=== PATIENT | male | born 1960 | race African-American/Black ===

== ENCOUNTER 2018-08-31 16:23 | Inpatient (IN) ==
[2018-08-31] MEDS ORDERED: ASPIRIN PO ONE (16:49)
[2018-08-31 17:05] LABS: BASO# 0.04 X1000 (0.0-0.2); BASO% 0.4 % (0.0-0.8); EOS# 0.27 X1000 (0.0-0.7); EOS% 2.9 % (0.0-10.0); HEMATOCRIT 38.2 % (42.0-52.0); HEMOGLOBIN 12.7 g/dL (14.0-18.0); IMM GRAN# 0.03 X1000 (0.0-0.04); IMM GRAN% 0.3 % (0.0-0.5); LYMPH# 2.35 X1000 (1.2-3.4); MCHC 33.2 g/dL (33-37); MCV 72.1 FL (81-99); MONO# 0.77 X1000 (0.11-0.59); MONO% 8.2 % (1.7-9.3); MPV 10.3 FL (7.4-10.4); NEUT# 5.95 X1000 (1.4-6.5); NEUT% 63.2 % (42.2-75.2); PLT 290 X1000 (130-400); RDW 15.3 % (11.5-14.5); WBC 9.41 X1000 (4.8-10.8)
[2018-08-31 17:08] LABS: INR 0.96; PROTIME 13.5 Seconds (11.0-16.0)
[2018-08-31 17:09] LABS: PTT 38.5 Seconds (22.3-41.8)
[2018-08-31 17:27] LABS: AGAP 12; ALB/GLOB RATIO 1.1; ALBUMIN 3.8 g/dL (3.5-5.0); ALKALINE PHOSPHATASE 157 U/L (32-122); BUN 16 mg/dL (8-22); CALCIUM 9.2 mg/dL (8.8-10.2); CHLORIDE 102 mmol/L (98-107); CK PROFILE 177 U/L (24-204); COSMO 279; ESTIMATED GFR > 60; GLUCOSE 170 mg/dL (70-104); GOT 13 U/L (10-34); GPT 17 U/L (10-44); POTASSIUM 3.9 mmol/L (3.5-5.1); SODIUM 137 mmol/L (136-145); TCO2 23 mmol/L (25-35); TOTAL BILIRUBIN 0.23 mg/dL (0.20-1.00); TOTAL PROTEIN 7.4 g/dL (6.3-8.3)
--- NOTE | 2018-08-31 17:54 | Diag Imaging Result Doc PS360 ---
CHEST-2 VIEWS - 08/31/2018 INDICATION: SOB COMPARISON: 03/10/2017 FINDINGS: The lungs are normally expanded and clear. Heart size and mediastinal contours are normal. No pneumothorax or pleural effusion. IMPRESSION: Negative exam. Electronically signed by Jayme Jessica 08/31/2018 5:52 PM
[2018-08-31] MEDS ORDERED: NITROGLYCERIN TOP ONE (18:15)
--- NOTE | 2018-08-31 18:31 | PROVIDER DOCUMENTATION ---
This chart was entered by Lorelei Bonner Scribe, acting as scribe for Donnie Natarajan MD. HPI-Chest Pain - General Chief Complaint: Shortness of Breath Stated Complaint: SOB,HIP,NECK,EYE COMPLAINT Time Seen by Provider: 08/31/18 17:49 Source: patient Allergies/Adverse Reactions: Patient Allergies Allergy/AdvReac Type Severity Reaction Status Date / Time No Known Allergies Allergy Verified 06/01/17 08:53 Home Medications: Home Medication List Medication Instructions Recorded Confirmed Last Taken Type ATORVAstatin [Lipitor] 40 mg PO DAILY 01/29/17 03/10/17 Unknown History Glyburide/Metformin HCl 1 tab PO BID 01/29/17 03/10/17 Unknown History [Glyburide-Metformin 5-500 mg] Lisinopril 20 mg PO BID 01/29/17 03/10/17 Unknown History Indomethacin [Indocin] 25 mg PO TID #30 capsule 03/10/17 Unknown Rx Amoxicillin 875 mg PO BID #20 tab 04/01/17 Unknown Rx Gentamicin 0.3% Oph Drops 2 drp LEFT EYE TID #1 bottle 04/01/17 Unknown Rx Cetirizine [Zyrtec] 10 mg PO DAILY #20 tab 06/01/17 Unknown Rx Methylprednisolone [Medrol Dosepak] 4 mg PO DIRECTED #1 pkg 06/01/17 Unknown Rx Naproxen 500 mg PO BID PRN PRN #60 tablet 02/19/18 Unknown Rx Cyclobenzaprine [Flexeril] 10 mg PO TID #20 tab 05/31/18 Unknown Rx Naproxen [Naprosyn] 500 mg PO BID #20 tab 05/31/18 Unknown Rx Gabapentin [Neurontin] 100 mg PO BID PRN #10 cap 08/30/18 Unknown Rx Naproxen [Naprosyn] 250 mg PO BID PRN #20 tab 08/30/18 Unknown Rx - History of Present Illness-CP Nature of Presenting Problem: pt is a 58 yr old male presenting with 2 yr hx of intermittent chest pain, pt reports pain today began this AM accompanied by shortness of breath. pt denies pain radiation, no nausea or diaphoresis. pt reports last cardiac work up was 3 yrs ago. 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 pt reports pain and shortness of breath with moderate exertion. Location: reports: other (left chest) Chest Pain Radiation: reports: no radiation Quality of Pain: reports: burning Severity in ED: mild Onset/Duration: this morning (hx of same x 2 yrs) Timing: intermittent Context/Activities at Onset: reports: moderate activity Modifying Factors: improves with: exercise (moderate exertion) Associated Symptoms: reports: shortness of breath. denies: abdominal pain, back pain, diaphoresis, nausea, vomiting Nitro Today/Relief: no nitro taken today Aspirin Treatment Today: 325 mg x 1, provided by ED Prior Chest Pain/Cardiac Workup: reports: other (last cardiac workup 3 yrs ago) Similar Symptoms Previously?: Yes Recently Seen Here or By Another Healthcare Provider: No Review of Systems - Adult - REVIEW OF SYSTEMS - ADULT Constitutional: denies: fever, fatique Eyes: reports: no symptoms reported Ears, Nose, Mouth & Throat: denies: ear pain, sinus problem, throat pain Cardiovascular: reports: chest pain. denies: palpitations, syncope Respiratory: reports: dyspnea on exertion (moderate exertion), shortness of breath. denies: cough, wheezing Gastrointestinal: denies: abdominal pain, diarrhea, nausea, vomiting Genitourinary: reports: no symptoms reported Musculoskeletal: denies: back pain, joint pain, neck pain Integumentary: reports: no symptoms reported Neurological: denies: dizziness/vertigo, headache/migraines Past History - Adult - PAST MEDICAL HISTORY-ADULT Review of Records: reports: Old Records Reviewed, Nursing Assessment Review, Medications Reviewed, Social history reviewed & non-contributory. Major Childhood Illnesses: reports: denies history Cardiovascular: reports: HTN, hyperlipidemia Respiratory: reports: denies history Gastrointestinal: reports: denies history Obstetrical/Gynecological: reports: denies history Genitourinary: reports: denies history Musculoskeletal: reports: arthritis Neurological: reports: denies history, Seizures/Epilepsy Endocrine/Immune: reports: Diabetes Other Conditions: reports: denies history - PRIOR SURGERIES/PROCEDURES Surgical/Procedure History: reports: none - PRIOR HOSPITALIZATIONS Prior Hospitalizations: reports: for similar symptoms - IMMUNIZATION STATUS Childhood Immunizations: See Nurse Assessment Flu Vaccine: See Nurse Assessment - FAMILY HISTORY Family History: reviewed, not pertinent - SOCIAL HISTORY Smoking: cigarettes Provider spent 3-5 mins advising pt. on dangers of tobacco.: Discussed manners to quit use, and f/u contacts for add'l counseling. Substance Use: alcohol, marijuana Alcohol Use Frequency: 5-6 times a week Physical Exam-General - PHYSICAL EXAM-ADULT Initial Vital Signs Reviewed: Yes - CONSTITUTIONAL General Appearance: appears well, alert, no apparent distress, obese - EYES Eyes: PERRL/EOMI - HEAD, EARS, NOSE, MOUTH & THROAT HENMT: normocephalic/atraumatic, moist mucous membranes, normal ENT inspection - NECK Neck: non-tender, full range of motion, supple, normal inspection - RESPIRATORY Respiratory: chest non-tender, lungs clear, normal breath sounds - CARDIOVASCULAR Cardiovascular: normal peripheral pulses, regular rate, rhythm, no edema, no gallop, no JVD, systolic murmur - GASTROINTESTINAL (ABDOMEN) Abdominal Exam: normal bowel sounds, non tender, soft - LYMPHATIC Lymphatic: no adenopathy - MUSCULOSKELETAL Back Exam: normal inspection, no CVA tenderness, no vertebral tenderness Extremity: normal range of motion, non-tender, normal gait, normal inspection - SKIN Integumentary: normal color, normal turgor, warm/dry - NEUROLOGIC Neurologic: grossly normal, no motor/sensory deficits - PSYCHIATRIC Psych/Mental Status: normal mood/affect - HEART Score HEART Score: History: Moderately Suspicious HEART Score: Age: 45-65 Years HEART Score: Risk Factors for Atherosclerotic Disease: > or = 3 Risk Factors or History of Atherosclerotic Disease HEART Score: Troponin: < or = Normal Limit (4) Progress - PLAN OF CARE/RESULTS Progress/Plan/Lab Results: Vital Signs - 8 hr 08/31/18 16:38 Temperature 98.4 F Pulse Rate 71 Respiratory Rate 18 Blood Pressure 164/80 O2 Sat by Pulse Oximetry 98 Laboratory Results - last 24 hr 08/31/18 08/31/18 08/31/18 16:48 16:48 16:48 WBC 9.41 RBC 5.30 Hgb 12.7 L Hct 38.2 L MCV 72.1 L MCH 24.0 L MCHC 33.2 RDW Std Deviation 15.3 H Plt Count 290 MPV 10.3 Immature Gran % (Auto) 0.3 Neut % (Auto) 63.2 Lymph % (Auto) 25.0 Harris % (Auto) 8.2 Eos % (Auto) 2.9 Baso % (Auto) 0.4 Immature Gran # (Auto) 0.03 Neut # (Auto) 5.95 Lymph # (Auto) 2.35 Harris # (Auto) 0.77 H Eos # (Auto) 0.27 Baso # (Auto) 0.04 PT INR PTT (Actin FS) Sodium 137 Potassium 3.9 Chloride 102 Carbon Dioxide 23 L Anion Gap 12 BUN 16 Creatinine 1.0 Estimated GFR/1.73 m2 > 60 BUN/Creatinine Ratio 16 Glucose 170 H Calculated Osmolality 279 Calcium 9.2 Total Bilirubin 0.23 AST 13 ALT 17 Alkaline Phosphatase 157 H Creatine Kinase 177 Troponin T [id number]-Fnjvypzlsow Pept 168 Total Protein 7.4 Albumin 3.8 Globulin 3.6 Albumin/Globulin Ratio 1.1 08/31/18 08/31/18 16:48 16:48 WBC RBC Hgb Hct MCV MCH MCHC RDW Std Deviation Plt Count MPV Immature Gran % (Auto) Neut % (Auto) Lymph % (Auto) Harris % (Auto) Eos % (Auto) Baso % (Auto) Immature Gran # (Auto) Neut # (Auto) Lymph # (Auto) Harris # (Auto) Eos # (Auto) Baso # (Auto) PT 13.5 INR 0.96 PTT (Actin FS) 38.5 Sodium Potassium Chloride Carbon Dioxide Anion Gap BUN Creatinine Estimated GFR/1.73 m2 BUN/Creatinine Ratio Glucose Calculated Osmolality Calcium Total Bilirubin AST ALT Alkaline Phosphatase Creatine Kinase Troponin T < 0.010 Byr-A-Fxnkcaqnrgr Pept Total Protein Albumin Globulin Albumin/Globulin Ratio Orders Category Date Time Status Cardiac Monitoring DIRECTED Care 08/31/18 16:49 Active Oxygen Therapy- ED Nursing DIRECTED Care 08/31/18 16:49 Active Saline Loc NOW Care 08/31/18 16:49 Active CHEST-2 VIEWS [RAD] Stat Exams 08/31/18 16:49 Completed CBC WITH ELECTRONIC DIFF [HEME] Stat Lab 08/31/18 16:48 Completed CK PROFILE [SP CHEM] Stat Lab 08/31/18 16:48 Completed COMPREHENSIVE METABOLIC PANEL [CHEM] Stat Lab 08/31/18 16:48 Completed PRO B-NATRIURETIC PEPTIDE Stat Lab 08/31/18 16:48 Completed PROTIME WITH INR [COAG] Stat Lab 08/31/18 16:48 Completed PTT [COAG] Stat Lab 08/31/18 16:48 Completed TROPONIN T Stat Lab 08/31/18 16:48 Completed Aspirin Med 08/31/18 16:49 Discontinued 325 mg PO NOW ONE Nitroglycerin Med 08/31/18 18:15 Discontinued 1 inch TOP NOW ONE CP/SOB/Palp >45 yrs of Age Stat Oth 08/31/18 16:49 Ordered EKG [EKG] Stat Ther 08/31/18 16:49 Ordered HTN, HLP, DM, Smoking, JOSUE need cardiac workup. will admit, Dr. Webster agree with the plan. Result Diagrams: 08/31/18 16:48 08/31/18 16:48 - EKG 1 Time of EKG reading by physician:: 16:42 EKG Read and Signed by:: Alo Webster EKG Interpretation (*Must complete 3 of following elements*): Abnormal (non spedific t wave abnormality) Rate: 73 Rhythm: nsr Duncan: normal QRS: LVH (moderate voltage criteria, may be normal variant) NM Interval: normal - XRAY 1 XRAY Study: Chest Impression: Normal ( Signed CHEST-2 VIEWS - 08/31/2018 INDICATION: SOB COMPARISON: 03/10/2017 FINDINGS: The lungs are normally expanded and clear. Heart size and mediastinal contours are normal. No pneumothorax or pleural effusion. IMPRESSION: Negative exam. Electronically signed by Jayme Jessica 08/31/2018 5:52 PM 08/31/18 1752 Interpreting Physician: Jayme Jessica MD Dictated Date/Time: 08/31/18 1749 cc: Alo Webster MD; Aden Aviles MD) Comparison with other Films: no changes (03/10/17) - CONSULTS/PCP/HOSPITALIST Notification #1 *Consult/PCP/Hospitalist*: Dr. Dumont Time Discussed: 18:25 Consult Disposition: Admit (Hx, PE and patient care disucssed, accepted.) Departure - Departure Date of Disposition Decision: 08/31/18 Time of Disposition Decision: 18:26 DIAGNOSIS: Chest pain Qualifiers: Chest pain type: unspecified Qualified Code(s): R07.9 - Chest pain, unspecified Disposition: ADMITTED INPATIENT 09 Certified Medical Emergency: Emergent Condition: Stable Referrals and Follow-Ups: Aden Khoury MD [Primary Care Provider] - - Critical Care Note This patient required my direct & personal management of CC.: No Attestation - Physician/ RON Attestation Patient care was provided by Advanced Practice Provider:: No The physician spent face to face time with patient:: Yes Advanced Practice Provider documentation review:: Supervising physician onsite and consulted in the evaluation and care of this patient. The physician did have a face to face encounter with the patient. This chart was documented by the indicated scribe, (Lorelei Bonner, Bucky) and accurately reflects the services I performed and decisions made by me, Ty kerns,Donnie Burnette MD, as attested by the provider's signature.
[2018-08-31] MEDS ORDERED: NITROGLYCERIN TOP PRN (18:43)
[2018-08-31] MEDS ORDERED: NICODERM PATCH TD ONE (18:54)
--- NOTE | 2018-08-31 19:55 | Diag Imaging Result Doc PS360 ---
CT ANGIOGRM PULMONARY ARTERIES - 08/31/2018 INDICATION: CHEST PAIN TECHNIQUE: Axial CT images were obtained after administering intravenous contrast. Coronal MIP images were generated. COMPARISON: None FINDINGS: There is no pulmonary embolism. Heart and great vessels are normal. No adenopathy. The lungs and airways are clear. Upper abdominal images are unremarkable. There are severe degenerative osteophytes all throughout the thoracic spine. No acute bony lesion. IMPRESSION: No acute disease. This exam was performed using automated exposure control, adjustment of mA or kV according to patient size, and/or use of iterative reconstruction technique Electronically signed by Jayme Jessica 08/31/2018 7:53 PM
--- NOTE | 2018-08-31 20:03 | HISTORY AND PHYSICAL ---
CHIEF COMPLAINT: Left-sided chest pain, which was noticed this morning at about 4:30 a.m. HISTORY OF PRESENT ILLNESS: Mr. Mil Giron is a 58-year-old male and has a history of hypertension, hyperlipidemia, and diabetes mellitus. He developed sudden onset of chest pain at about 4:30 a.m. this morning while he was about to take his to work. The pain is on the left side of his chest. He describes it as stabbing. On a scale of 0 to 10, it is about 8/10 and radiates to his neck region. Has associated shortness of breath with diaphoresis. Presented to the ER. His initial cardiac enzymes have been negative. X-ray of the chest does not show any acute cardiopulmonary process. EKG showed evidence of normal sinus rhythm with normal axis as well as LVH. The patient indicated that he had some possible cardiac catheterization done about 3 years ago, but then he was told he did not have any coronary occlusions. He does not recall having any stenting procedures done. The patient will now be admitted to the floor for further management. PAST MEDICAL HISTORY: 1. Hypertension. 2. Hyperlipidemia. 3. Diabetes mellitus. SOCIAL HISTORY: He smokes cigarettes, about half a pack of cigarettes per day since 2000. Denies alcohol. He uses marijuana. SURGICAL HISTORY: Unremarkable. FAMILY HISTORY: Positive for hypertension as well as diabetes. ALLERGIES: No known drug allergies. MEDICATIONS: Include the followin. Amoxil 875 mg p.o. twice a day. 2. Cetirizine 10 mg p.o. daily. 3. Cyclobenzaprine 10 mg p.o. 3 times a day. 4. Gentamicin eyedrops as directed. 5. Glyburide/metformin 1 p.o. twice a day. 6. Indomethacin 25 mg p.o. 3 times a day. 7. Medrol Dosepak. 8. Naprosyn 500 mg p.o. 9. Atorvastatin 40 mg p.o. daily. 10. Gabapentin 100 mg. 11. Lisinopril 40 mg. REVIEW OF SYSTEMS: Constitutional: No fever. ORDERLY: Has headaches. 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 Cardiovascular: As in History of Present Illness. Respiratory: No cough. Gastrointestinal: No nausea, vomiting, abdominal pain. : No dysuria. Psychiatric: No anxiety. Endocrine: No thyroid disease. Hematology: No bleeding problems. Musculoskeletal: Has joint pains. PHYSICAL EXAMINATION: VITAL SIGNS: Temperature is 98.4 degrees, pulse 71, respiratory rate 18, blood pressure is 164/80, oxygen saturation 98%. HEENT: Atraumatic, normocephalic. He is anicteric. Pupils are poorly reactive to light. Conjunctiva of left eye is somewhat congested. No oral lesions noted. NECK: No lymphadenopathy or thyromegaly. CARDIOVASCULAR: S1, S2. RESPIRATORY: Has evidence of good air entry bilaterally. ABDOMEN: Soft, nontender. No masses felt. EXTREMITIES: No evidence of edema. CENTRAL NERVOUS SYSTEM: No obvious focal deficit noted. LABS: WBC is 9.41, hematocrit is 38.2, with a platelet count of 290,000. Sodium is 137, potassium is 3.9, chloride is 102, bicarb is 23, BUN is 16, creatinine is 1.0, glucose is 170. X- ray chest: No acute cardiopulmonary process. EKG showed normal sinus rhythm with evidence of LVH. ASSESSMENT AND PLAN: This 58-year-old male presented to the hospital because of left-sided chest pain. Cardiac risk factors include diabetes, hypertension, hyperlipidemia, age, as well as tobacco use. 1. Atypical chest pain. Place patient on telemetry. Follow up on serial cardiac enzymes. Maintain patient on aspirin as well as a beta mary alice, and also use nitroglycerin paste 1 inch every 6 hours as needed chest pain. Obtain 2D echo of the heart. Consult with Cardiology. 2. Diabetes mellitus. Maintain patient on sliding scale insulin. Monitor blood sugar levels. Check hemoglobin A1c level. 3. Hypertension. Continue current antihypertensive regimen. 4. Hyperlipidemia. Continue current lipid-lowering agent. 5. Tobacco use history. Recommend nicotine patch. 6. Blind left eye. Aware 7. Deep vein thrombosis prophylaxis with Lovenox. 8. Gastrointestinal prophylaxis with proton pump inhibitor. cc: Danilo Dumont MD
[2018-08-31] MEDS: PRINIVIL PO SCH (23:03)
[2018-08-31] MEDS: NS 1,000 ML IV SCH (23:03)
[2018-08-31] MEDS: LIPITOR PO SCH (23:03)
[2018-08-31] MEDS: HUMULIN R SUBQ SCH (23:03)
[2018-08-31] MEDS: COREG PO SCH (23:04)
[2018-09-01] MEDS: TYLENOL PO PRN ×2 (01:08→20:08)
[2018-09-01] MEDS ORDERED: ALBUTEROL NEB INH PRN (04:11)
[2018-09-01] MEDS: PRILOSEC PO SCH (06:09)
[2018-09-01] MEDS: HUMULIN R SUBQ SCH ×4 (06:09→21:40)
--- NOTE | 2018-09-01 06:56 | EKG Report ---
Test Performed on : 08/31/2018 4:42:00 PM Test Reason : SOB Blood Pressure : / mmHG Vent. Rate : 073 BPM Atrial Rate : 073 BPM P-R Int : 138 ms QRS Dur : 078 ms QT Int : 388 ms P-R-T Axes : 065 034 069 degrees QTc Int : 427 ms Normal sinus rhythm. Moderate voltage criteria for LVH, may be normal variant Nonspecific T wave abnormality Abnormal ECG When compared with ECG of 26-FEB-2018 18:55, No significant change was found Unconfirmed Result
[2018-09-01 07:35] LABS: HEMOGLOBIN A1C 6.2 % (4.8-6.0)
[2018-09-01 07:44] LABS: CHOLESTEROL 112 mg/dL (0-200); HDL 28 mg/dL (35-55); LDL 57 mg/dL; TRIGLYCERIDES 137 mg/dL (39-160); VLDL 27 mg/dL
[2018-09-01] MEDS ORDERED: LEXISCAN ONE (09:06)
--- NOTE | 2018-09-01 10:03 | CARDIOLOGY CONSULTATION ---
DATE: 09/01/2018 REASON FOR CONSULTATION: Cardiology was consulted for chest pain. HISTORY OF PRESENT ILLNESS: Mr. Giron is a 58-year-old Afro-[place]ese gentleman with history of hypertension, diabetes, hyperlipidemia, who comes in with complaints of chest pain. He has been having intermittent episodes of chest pain at times sharp, at times burning in character, off and on for the last couple of years. He has also had problems with the vision on his left eye. 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 From a cardiac standpoint, he came in with sudden onset chest pain with radiation to the left arm he describes as burning in character. Severe pressure-like sensation radiating to the neck as well. Patient presented to the emergency room and was admitted. His electrocardiogram revealed normal sinus rhythm with nonspecific ST-T changes. His cardiac enzymes have been negative. There is no history of palpitations. There is no history of dizziness or syncope. REVIEW OF SYSTEM: General: A 14-point review of systems was done. GI System: There is no history of nausea, vomiting, diarrhea. There is no history of hematemesis or melena. Central nervous system: No focal weakness to suggest a CVA or TIA. System: There is no dysuria or hematuria. PAST MEDICAL HISTORY: 1. Hypertension, diabetes, hyperlipidemia. 2. He says he had a coronary angiogram 3 to 4 years back. Per patient, he does not recall having any stents performed. 3. He smokes cigarettes; smokes about a half a pack of cigarettes since 1999. Denies any alcohol abuse. ALLERGIES: He is not known to be allergic to any medications. HOME MEDICATIONS: Include gentamicin eye drops, glyburide, metformin 1 tablet twice a day, indomethacin 25 mg 3 times a day, Naprosyn, Atorvastatin, gabapentin, lisinopril. PHYSICAL EXAMINATION: Vital Signs: Blood pressure was 160/80. Cardiovascular System: Normal jugular venous pressure. There is no thyromegaly. No carotid bruit. First and second heart sounds were heard. There was soft systolic murmur. Respiratory System: Normal air entry. There are no crepitations or rhonchi. Abdomen: Soft, nontender. There was no guarding or rigidity. Bowel sounds were heard. Central nervous system: Alert and was moving all 4 extremities. Detailed central nervous system examination not performed. Extremities: Examination of extremities revealed no pedal edema. ASSESSMENT AND PLAN: Mr. Mil Giron is a 58-year-old, Afro-M[place]ese gentleman with history of hypertension, diabetes, hyperlipidemia, who comes in with complaints of having recurrent episodes of chest discomfort for the last 1 year. He comes in with burning retrosternal chest discomfort with radiation to the left side of his chest. He has been ruled out for myocardial infarction by cardiac enzymes. RECOMMENDATIONS: 1. The symptoms may be made worse and has GERD-like features as well. He is on indomethacin and takes Naprosyn; however, we will make sure there is no ischemia. We will set him up to undergo a Cardiolite stress test. In addition, we will get an echocardiogram to evaluate for his murmur. 2. Hypertension. Continue with his medications as planned. 3. He has got likely diabetic retinopathy with visual disturbance in the left eye. 4. Hyperlipidemia. Continue with his lipid-lowering agents. 5. Tobacco abuse history. Nicotine patch recommended. Thank you for the consult. We will follow hospital course. cc: Darshan Rothman MD
--- NOTE | 2018-09-01 11:35 | ECHO REPORT ---
ORDER DATE: 08/31/2018 INTERPRETING PHYSICIAN: Dr. Mario REQUESTING PHYSICIAN: Dr. Dumont CLINICAL INDICATIONS: This is a 58-year-old male with chest pain, shortness of breath, hypertension. M-MODE MEASUREMENTS: Right ventricle: cm. Left ventricle end diastole: 5.0 cm. Left ventricle end systole: 3.2 cm. Posterior wall: 1.1 cm. Interventricular septum: 1.2 cm. Left atrium: 3.7 cm. Aortic root: 3.5 cm. SUMMARY OF 2-DIMENSIONAL IMAGIN. Left ventricular function is normal. Ejection fraction is estimated at 65% to 70%. There is mild degree of concentric LVH. The left ventricular chamber appears to be moderately enlarged. 2. Left atrium also appears to be moderately enlarged. 3. Aortic valve looks normal. Color flow mapping indicates mild degree of regurgitation. 4. Mitral valve looks normal. Color flow mapping indicates trivial degree of regurgitation. 5. Pulse wave Doppler of mitral inflow is normal. 6. Tissue Doppler of septal and lateral mitral annulus averages 10 cm. 7. Pulmonary venous flow is normal. 8. There is no diastolic dysfunction. 9. Tricuspid valve shows minimal degree of regurgitation. 10.Inferior vena cava is not dilated. 11.The pulmonary pressure is normal. 12.Pulmonic valve appears to be within normal limits. 13.There is no pericardial effusion, mass or thrombus. Clinical correlation is recommended. cc: MD Danilo Medina MD
[2018-09-01] MEDS: ASPIRIN PO SCH (12:03)
[2018-09-01] MEDS: COREG PO SCH ×2 (12:03→20:08)
[2018-09-01] MEDS: LOVENOX SUBQ SCH (12:03)
[2018-09-01] MEDS: PRINIVIL PO SCH ×2 (12:04→20:08)
--- NOTE | 2018-09-01 12:38 | PROGRESS NOTE ---
DATE: 09/01/2018 SUBJECTIVE: The patient is resting comfortably in bed. Has recently completed cardiac stress test. OBJECTIVE: Vital signs: Temperature 98.2 degrees, pulse 63, respiratory 17, blood pressure 130/60, oxygen saturation 98%. HEENT: Atraumatic, normocephalic. Cardiovascular: S1, S2. Respiratory: Has evidence of good air entry bilaterally. Abdomen: Soft, nontender. No masses felt. Extremities: No evidence of edema. Central nervous system: No obvious focal deficit noted. ASSESSMENT AND PLAN: 1. Atypical chest pain. Follow up on serial cardiac enzymes. Maintain the patient on aspirin as well as beta mary alice. Also use Nitro paste 1 inch q.6 hours p.r.n. for chest pain. Cardiology following. Follow up on results of cardiac stress test. 2. Diabetes mellitus. Continue blood sugar and monitor as well as sliding scale insulin. 3. Hypertension. Continue current antihypertensive regimen. 4. Hyperlipidemia. Continue lipid-lowering agent. 5. Tobacco use history. Nicotine patch recommended. 6. Blind left eye. Aware. 7. Deep vein thrombosis prophylaxis. Lovenox. 8. Gastrointestinal prophylaxis. Proton pump inhibitors. cc: Danilo Dumont MD
[2018-09-01] MEDS: NS 1,000 ML IV SCH (15:33)
[2018-09-01] MEDS: LIPITOR PO SCH (20:08)
[2018-09-01] MEDS: NEURONTIN PO PRN (20:08)
[2018-09-02] MEDS ORDERED: TORADOL IV ONE (03:26)
[2018-09-02] MEDS: NS 1,000 ML IV SCH (04:01)
[2018-09-02] MEDS: PRILOSEC PO SCH (06:31)
[2018-09-02] MEDS: HUMULIN R SUBQ SCH ×4 (06:31→21:32)
[2018-09-02] MEDS: LOVENOX SUBQ SCH (09:16)
[2018-09-02] MEDS: PRINIVIL PO SCH ×2 (09:16→21:30)
[2018-09-02] MEDS: COREG PO SCH ×2 (09:16→21:30)
[2018-09-02] MEDS: ASPIRIN PO SCH (09:16)
[2018-09-02] MEDS: HYGROTON PO SCH (13:13)
--- NOTE | 2018-09-02 13:23 | PROGRESS NOTE ---
DATE: 09/02/2018 SUBJECTIVE: This morning, Mr. Giron refers to be feeling great. He does not have any new complaint. He said he does not have any abdominal pain and no chest pain. Breathing is fine. OBJECTIVE: Current vitals: Blood pressure is 185/76, pulse is 63, respiration is 18, temperature is 98 degrees. The patient was saturating 100% on room air. General exam: Mr. Giron is a 58- year-old gentleman. He was sitting up in a chair, no distress. HEENT: Mucosa is pink and moist. Anicteric. Acyanotic. Neck: Supple. Respiratory System: There is good air entry bilaterally. No crepitations. No rhonchi. Cardiovascular: Regular rate and rhythm. No murmurs, no rubs, no gallops. GI: Abdomen soft, nontender. Bowel sounds present. Extremities: No pedal edema. Distal pulses are present. NET [employer] SUPPORT SPECIALIST: Patient is awake, alert, oriented. There is no focal neurological deficit. LABORATORY DATA: Glucose is 206. Patient A1c is 6.2. CURRENT MEDICATIONS: Have all been reviewed. DIAGNOSTIC DATA: A stress test which was done yesterday demonstrated a partial reversible defect in the basal to mid inferolateral region of the left ventricle suggesting inducible myocardial ischemia in this region. ASSESSMENT: 1. Atypical chest pain on presentation with abnormal stress test. Patient has been seen by Cardiology. I am waiting for the review on the stress test to make a determination if the patient will pursue any further cardiac risk stratification intervention. 2. Diabetes mellitus, controlled. 3. Severe uncontrolled hypertension. Patient's blood pressure continues to be remarkably elevated. We are going to add amlodipine and chlorthalidone as a diuretic to his current medication for better glycemic control. 4. Dyslipidemia. Will continue with the statin. 5. Tobacco abuse. Patient has been counseled. 6. Microcytosis. We will do iron studies to rule out any underlying iron deficiency. PLAN: So, in general Mr. Giron refers to be doing a lot better today. He is currently asymptomatic. Stress test was remarkably abnormal. Unsure the patient had an unstable angina. Will be pending on Cardiology evaluation today to determine if the patient will benefit from a left heart catheterization as an inpatient or an outpatient. cc: Hudson Rojas MD
--- NOTE | 2018-09-02 16:07 | PROGRESS NOTE ---
DATE: 09/02/2018 SUBJECTIVE: Patient continues without chest discomfort or shortness of breath on room air. OBJECTIVE: Blood pressure 176/67, heart rate 70, oxygen saturation 100% on room air. There is no significant jugular venous distention. Chest is clear to auscultation. Cardiac exam reveals a regular rate and rhythm without appreciable murmur or gallop. There is no evidence of peripheral edema. LABORATORY DATA: Includes initial troponin less than 0.01. Followup troponin less than 0.01. LDL cholesterol 57, HDL cholesterol 28, triglycerides 137, total cholesterol 112. Lexiscan sestamibi indicates inducible ischemia in the basal to mid inferolateral region left ventricle and normal left ventricular ejection fraction. IMPRESSION: 1. Recent chest discomfort, possibly angina. 2. Abnormal Lexiscan sestamibi study indicating inducible ischemia in basal to mid inferolateral region left ventricle. 3. Multiple risk factors for coronary artery disease including hypertension, diabetes mellitus, hyperlipidemia and chronic cigarette use. RECOMMENDATIONS: Favor pursuit of left heart catheterization with selective coronary angiography for definitive evaluation of patient's symptoms and abnormal stress study. The rationale for this approach along with potential hazards were reviewed with the patient as well as the potential potentially for him to transfer to [facility] in the event that coronary angioplasty/stenting is needed. The patient acknowledged these and wished to proceed. We will schedule cardiac catheterization procedure for Tuesday. cc: Carson Bartholomew MD
[2018-09-02] MEDS: NORVASC PO SCH (21:30)
[2018-09-02] MEDS: LIPITOR PO SCH (21:30)
[2018-09-02] MEDS: NEURONTIN PO PRN (21:30)
[2018-09-03] MEDS: HUMULIN R SUBQ SCH ×4 (06:02→21:47)
[2018-09-03] MEDS: PRILOSEC PO SCH (06:03)
[2018-09-03 07:25] LABS: BASO# 0.03 X1000 (0.0-0.2); BASO% 0.3 % (0.0-0.8); EOS# 0.33 X1000 (0.0-0.7); HEMOGLOBIN 12.5 g/dL (14.0-18.0); IMM GRAN# 0.04 X1000 (0.0-0.04); IMM GRAN% 0.4 % (0.0-0.5); LYMPH% 27.4 % (20.5-51.1); MCH 23.5 PG (27-31); MCHC 32.1 g/dL (33-37); MCV 73.2 FL (81-99); MONO# 0.99 X1000 (0.11-0.59); MPV 10.1 FL (7.4-10.4); NEUT# 6.57 X1000 (1.4-6.5); NEUT% 59.9 % (42.2-75.2); PLT 294 X1000 (130-400); RBC 5.33 XMIL (4.7-6.1); RDW 15.2 % (11.5-14.5); WBC 10.96 X1000 (4.8-10.8)
[2018-09-03 07:51] LABS: AGAP 13; ALB/GLOB RATIO 0.9; ALBUMIN 3.7 g/dL (3.5-5.0); ALKALINE PHOSPHATASE 149 U/L (32-122); BUN 15 mg/dL (8-22); CALCIUM 9.2 mg/dL (8.8-10.2); CHLORIDE 99 mmol/L (98-107); COSMO 273; CREATININE 0.9 mg/dL (0.7-1.2); ESTIMATED GFR > 60; GLUCOSE 171 mg/dL (70-104); GOT 14 U/L (10-34); GPT 18 U/L (10-44); POTASSIUM 3.9 mmol/L (3.5-5.1); SODIUM 134 mmol/L (136-145); TCO2 22 mmol/L (25-35); TOTAL PROTEIN 7.8 g/dL (6.3-8.3)
[2018-09-03 08:05] LABS: IRON SATURATION 25 %; TIBC 215 ug/dL; TOTAL IRON 54 ug/dL (53-167); UNBOUND IRON 161 ug/dL (112-346)
[2018-09-03 08:45] LABS: FERRITIN 368 ng/mL (30-400)
[2018-09-03] MEDS: NORVASC PO SCH ×2 (09:24→21:47)
[2018-09-03] MEDS: LOVENOX SUBQ SCH (09:24)
[2018-09-03] MEDS: PRINIVIL PO SCH ×2 (09:24→21:47)
[2018-09-03] MEDS: COREG PO SCH ×2 (09:24→21:47)
[2018-09-03] MEDS: ASPIRIN PO SCH (09:24)
[2018-09-03] MEDS: HYGROTON PO SCH (09:25)
--- NOTE | 2018-09-03 15:23 | PROGRESS NOTE ---
DATE: 09/03/2018 SUBJECTIVE: The patient is awake, not in any obvious distress. OBJECTIVE: Vital signs: Temperature 98.2 degrees, pulse 65, respirations 18, blood pressure 164/78, oxygen saturation 98%. HEENT: Atraumatic, normocephalic. Cardiovascular: S1, S2. Respiratory: Has evidence of good entry bilaterally. Abdomen: Soft, nontender. No masses felt. Extremities: No evidence of edema. Central nervous system: No obvious focal deficit noted. LABS: WBCs 10.96, hematocrit 39.0 with a platelet count of 294,000. Sodium is 134, potassium 3.9, chloride 99, bicarb 22, BUN is 15, creatinine 0.9. Lexiscan sestamibi images demonstrate partial reversible defect in the basal to mid inferolateral region, left ventricle, suggesting inducible myocardia ischemia in that area. ASSESSMENT AND PLAN: 1. Atypical chest pain. Continue patient on aspirin as well as beta mary alice. Nitroglycerin paste p.r.n. for chest pain. Cardiac cath scheduled for tomorrow. 2. Diabetes mellitus. Continue blood sugar monitoring as well as sliding scale insulin. 3. Hypertension. Continue current antihypertensive regimen. 4. Hyperlipidemia. Continue lipid-lowering agent. 5. Tobacco use history. Nicotine patch recommended. 6. Blind left eye. Aware. 7. Deep vein thrombosis prophylaxis. Lovenox. 8. Gastrointestinal prophylaxis. Proton pump inhibitor. cc: Danilo Dumont MD MTD
[2018-09-03] MEDS: LIPITOR PO SCH (21:47)
[2018-09-04] MEDS: HUMULIN R SUBQ SCH ×4 (06:28→21:56)
[2018-09-04] MEDS: PRILOSEC PO SCH (06:29)
[2018-09-04] MEDS: PRINIVIL PO SCH ×2 (08:15→21:58)
[2018-09-04] MEDS: COREG PO SCH ×2 (08:15→21:56)
[2018-09-04] MEDS: NORVASC PO SCH ×2 (08:15→21:57)
[2018-09-04] MEDS: ASPIRIN PO SCH (08:15)
[2018-09-04] MEDS: HYGROTON PO SCH (08:18)
[2018-09-04] MEDS ORDERED: HEPARIN 1000 UNITS/NS 2,000 UNIT/1,000 ML IV.SOLN ONE (08:24)
[2018-09-04] MEDS ORDERED: NITROGLYCERIN ONE (08:27)
[2018-09-04] MEDS ORDERED: NS 1,000 ML ONE (08:46)
[2018-09-04] MEDS ORDERED: CLAVE TWINSITE 32 IN 11959 ONE (08:53)
[2018-09-04 08:59] LABS: INR 0.97; PROTIME 13.7 Seconds (11.0-16.0)
[2018-09-04 09:00] LABS: PTT 38.1 Seconds (22.3-41.8)
[2018-09-04] MEDS ORDERED: DILAUDID ONE (09:00)
[2018-09-04] MEDS ORDERED: VERSED ONE (09:00)
--- NOTE | 2018-09-04 09:11 | EKG Report ---
Test Performed on : 09/04/2018 08:18:55 AM Test Reason : pt going for heart cath last ekg >48 hr Blood Pressure : / mmHG Vent. Rate : 060 BPM Atrial Rate : 060 BPM P-R Int : 142 ms QRS Dur : 084 ms QT Int : 436 ms P-R-T Axes : 060 044 061 degrees QTc Int : 436 ms Normal sinus rhythm. Voltage criteria for left ventricular hypertrophy Nonspecific T wave abnormality Abnormal ECG When compared with ECG of 31-AUG-2018 16:42, (Unconfirmed) No significant change was found Confirmed by Richard FULLER, Alexandr Tomlinson ([id number]) on 09/04/2018 12:49:13 PM
--- NOTE | 2018-09-04 10:10 | Diag Imaging Result Document ---
PROCEDURE NAME: MYOCARDIAL PERF SCAN, STR/REST - 09/01/2018 PROCEDURE NAME: Lexiscan sestamibi interpretation. SUMMARY: The patient was administered 15.4 mCi of technetium-99m sestamibi, after which resting cardiac images were obtained. The patient was subsequently administered Lexiscan 0.4 mg intravenously after which the heart rate went from 62 beats per minute to 88 beats per minute and the blood pressure went from 163/75 to 161/80. With Lexiscan the patient denied chest discomfort. At peak exercise with Lexiscan the patient denied chest discomfort. Following the administration of Lexiscan, the patient was administered 45.0 mCi of technetium-99m sestamibi, after which gated stress cardiac images were obtained. Baseline ECG demonstrated sinus rhythm and left hypertrophy with repolarization abnormality. With Lexiscan there were no diagnostic ST-segment changes. Following the administration of Lexiscan, baseline ST and T-wave abnormality did not change significantly. SPECT images were reconstructed in the short, horizontal, and vertical long axis. Review of these images demonstrated a severe defect in uptake in the basal to mid inferolateral region left ventricle on stress images, which partially improves but does not normalize on resting images. Gated images demonstrate a calculated left ejection fraction of 61% with symmetrical wall motion/thickening. Mild left ventricular enlargement suggested on SPECT images. CONCLUSIONS: 1. Adequate response to Lexiscan. 2. Clinically negative for chest pain. 3. Electrocardiographically baseline ST and T-wave abnormality did not change significantly following the administration of Lexiscan. 4. Lexiscan sestamibi images demonstrate partial reversible defect in the basal to mid inferolateral region left ventricle suggesting inducible myocardial ischemia in this region. Mild left ventricular enlargement with normal left ventricular ejection fraction demonstrated. Clinical correlation recommended. cc: MD Darshan Colon MD
[2018-09-04] MEDS ORDERED: LABETALOL IV PRN (11:30)
--- NOTE | 2018-09-04 13:13 | CARDIAC CATH REPORT ---
PROCEDURE DATE: 09/04/2018 INDICATION: Chest pain, myocardial perfusion scan demonstrating a partial reversibility defect in the basal to mid inferolateral region of the left ventricle suggesting ischemia, normal ejection fraction. PROCEDURES PERFORMED: 1. Left heart catheterization. 2. Selective coronary angiography. 3. Left ventriculogram. PROCEDURE IN DETAIL: Mr. Giron was brought to the catheterization laboratory in a fasting state. Informed consent was obtained. Prepped and draped in the usual fashion. He was initially anesthetized over the right radial artery. With multiple attempts, we were able to puncture the right radial with good blood return. However, we were not able to thread the wire. After adequate hemostasis, attention was turned to the left radial. An IV was placed and a 5-Greek catheter was placed via true Seldinger technique. Radial cocktail was administered. Catheters were introduced. Hemodynamic measurements were made in the ascending thoracic aorta. Coronary angiography was performed in multiple views using a JL3.5 catheter on the left. An AR2 was used on the right. A left heart catheterization was performed using the JR4, as was the left ventriculogram. After the procedure was performed, all sheaths and catheters were removed. TR band was left inflated at 12 mL of air. Good capillary refill. Good hemostasis. There were 80 mL of IV contrast and 5-10 mL of blood loss. FINDINGS: 1. The left main originates from the left coronary cusp. It is normal. 2. Left anterior descending originates from the left main. There is mild luminal irregularities in the proximal vessel. The mid and distal vessel appear normal. 3. Circumflex originates from the left main. Mild luminal irregularities noted in the proximal vessel. The mid vessel appears to have the suggestion of a severe lesion in the AV circumflex. It is difficult to visualize. It does appear to be a codominant circulation. 4. Right coronary originates from the right coronary cusp. The proximal and mid vessel have approximately 30% lesion. It was a normal distal vessel. It is a relatively small circumflex, again a dual-dominant circulation. The ramus is proximally normal. Bifurcates early. 5. LAD. The portion that goes to a more LAD type distribution has an ostial 30- 40% lesion. The circumflex territory distribution of the ramus had mild luminal irregularities. 6. Left ventriculogram demonstrates an EF of 60%. 7. Aortic pressure 165/78 with a mean of 110. Left ventricle pressure 166/8 with an LVEDP of 10. ASSESSMENT: Mr. Giron is a 58-year-old gentleman with an abnormal nuclear scan as detailed above. PLAN: We are pending evaluation of the studies by [facility]. He does appear to have a severe lesion in the AV circumflex territory which would correspond to his nuclear scan. This appears to be a relatively small vessel with diffuse disease in the branch vessels. Will continue with medical management at this time. cc: Varghese Robin MD MTDD
--- NOTE | 2018-09-04 13:28 | PROGRESS NOTE ---
DATE: 09/04/2018 SUBJECTIVE: Patient has recently had a cardiac catheterization. Seems to be doing fairly well. OBJECTIVE: Vital signs: Temperature 98.9 degrees, pulse 98, respiratory rate is 18, blood pressure 169/77, O2 saturation is 98%. HEENT: Atraumatic, normocephalic. Cardiovascular: S1, S2. Respiratory system: Has evidence of good air entry bilaterally. Abdomen: Soft, nontender. No masses felt. Central nervous system: No obvious focal deficit noted. LABORATORIES: INR 0.97, blood sugar is 146. ASSESSMENT AND PLAN: 1. Atypical chest pain/abnormal cardiac stress test. The patient recently had a cardiac catheterization. Final report pending. 2. Diabetes mellitus. Continue blood sugar monitoring as well as sliding scale insulin. 3. Hypertension. Continue current antihypertensive regimen. 4. Hyperlipidemia. Continue lipid-lowering agent. 5. Tobacco use history. Continue nicotine patch as recommended. 6. Blind left eye. Aware. 7. Deep vein thrombosis prophylaxis. Lovenox. 8. Gastrointestinal prophylaxis. PPI. cc: Danilo Dumont MD
[2018-09-04] MEDS: LIPITOR PO SCH (21:56)
[2018-09-04] MEDS: LOVENOX SUBQ SCH ×2 (21:57→22:13)
[2018-09-05] MEDS: PRILOSEC PO SCH (06:00)
[2018-09-05] MEDS: HUMULIN R SUBQ SCH ×2 (06:34→11:41)
[2018-09-05] MEDS ORDERED: ASPIRIN PO SCH (09:00)
[2018-09-05] MEDS: COREG PO SCH (09:09)
[2018-09-05] MEDS: NORVASC PO SCH (09:09)
[2018-09-05] MEDS: HYGROTON PO SCH (09:09)
[2018-09-05] MEDS: PRINIVIL PO SCH (09:09)
[2018-09-05 11:32] VITALS: BP 149/76
--- NOTE | 2018-09-06 09:10 | DISCHARGE SUMMARY ---
ADMISSION DATE: 08/31/2018 DISCHARGE DATE: 09/05/2018 DISPOSITION: Home. FOLLOWUP: 1. Dr. Khoury. 2. Dr. Rothman. CONSULTATIONS DURING THIS ADMISSION: Cardiology was consulted. Patient was seen by Dr. Bartholomew. INVASIVE PROCEDURES DONE DURING THIS ADMISSION: Left heart catheterization was done by Dr. Robin. IMAGING STUDIES OF SIGNIFICANCE: 1. A chest x-ray on admission was negative. 2. A CTA of the lungs showed no acute disease. 3. Echocardiogram showed an ejection fraction of 65 to 70 percent, mild concentric left ventricular hypertrophy. 4. A myocardial perfusion scan was pathological, suggesting inducible myocardial ischemia. ADMISSION DIAGNOSES: 1. Atypical chest pain. 2. Diabetes mellitus. 3. Hypertension. 4. Dyslipidemia. 5. Tobacco use. ASSESSMENT: 1. Severe coronary arthrosclerotic disease with unstable angina on presentation. 2. Diabetes mellitus. 3. Severe uncontrolled hypertension. 4. Dyslipidemia. 5. Tobacco abuse. 6. Microcytic anemia with normal iron studies, likely due to anemia of chronic disease. DISCHARGE MEDICATIONS: 1. Lisinopril 20 mg b.i.d. 2. Lipitor 40 mg daily. 3. Glyburide with metformin 1 tablet b.i.d. 4. Gabapentin 100 mg b.i.d. 5. Carvedilol 3.125 b.i.d. 6. Chlorthalidone 12.5 p.o. daily. 7. Aspirin 81 mg daily. 8. Amlodipine 5 mg b.i.d. PRESENTING COMPLAINT: Left-sided chest pain. HISTORY OF PRESENTING COMPLAINT: Mr. Giron is a 58-year-old, gentleman who has a history of hypertension, dyslipidemia, diabetes mellitus. Was awakened at about 4:30 on the morning of admission with left-sided chest pain described as stabbing, went from 0 to 10. The patient was evaluated in the emergency department. Initial blood pressure reading was about 174/80, went up to 171. He still was symptomatic so he was admitted for cardiac workup. HOSPITAL COURSE: Mr. Giron was admitted to the medical floor. Blood pressure and glucose were all controlled. Cardiology was consulted and a stress test was ultimately done which was pathological so a left heart catheterization was done which revealed a severe lesion in the circumflex territory, which would also respond to the nuclear stress. Consultation was held with interventional cardiology in [place] but recommendation was just to treat this more medically and that there was no need for any intervention. This morning, cardiology thought that the patient was okay from their standpoint to be discharged on medications and they will follow up with him. This morning, Mr. Giron is asymptomatic. No more chest pain. Blood pressure is better controlled. His current vitals, BP is 114/76, pulse is 61, respirations are 16, temperature is 98.7 degrees. Patient is completely asymptomatic. Physical exam is also unremarkable. He is going to be discharged in stable condition and he will follow up with his primary care doctor and the cardiology team. He has also been counseled multiple times about smoking cessation. All the discharge instructions have been discussed with Mr. Giron. Specifically, we have advised that because he had a left heart catheterization, he should withhold the metformin for 48 to 72 hours before initiation. Time spent for discharge is 35 minutes. cc: MD Aden Arzola MD Ashish K. Basu, MD
== END 2018-09-05 15:55 | disposition home or self-care (01) | DRG 287 ==
LOC: ED 16:23 → SUATTDRO 19:23 → EDIPHOLD 19:23 → 3N 19:58 → 3S 09-04 10:52
PROVIDERS: ATTEND Internal Medicine
CPT/HCPCS: 71020; 71046; 71275; 78451; 78452; 80053; 80061; 82550; 82565; 82607; 82728; 82746; 82948; 83036; 83540; 83550; 83735; 83880; 84484; 85025; 85610; 85730; 93005; 93010; 93017; 93306; 93458; 94640; 94761; 99285; A9270; A9500; J1170; J1644; J1650; J1885; J2250; J2785; J7030; Q9967; XXXXX